=== PATIENT | male | born 1965 | race Hispanic/Latino ===

== ENCOUNTER 2018-07-28 21:04 | Emergency (ER) | payer OTHER ==
[2018-07-28 21:09] VITALS: RESP 18; TEMP 97.9
--- NOTE | 2018-07-28 21:34 | C.PDOC ---
History Of Present Illness 53 year old male is brought to the ED by EMS for evaluation after patient was found publicly intoxicated [employer]. Patient states he was discharged from [facility] this morning. Patient with no previous visits to this ED. He offers no physical complaints at this time. Time Seen by Provider: 07/28/18 21:14 Chief Complaint (Nursing): Altered Mental Status History Per: Patient History/Exam Limitations: Intoxication Past Medical History Reviewed: Historical Data, Nursing Documentation, Vital Signs Vital Signs: Last Vital Signs Temp 97.9 F 07/28/18 21:06 Pulse 94 H 07/28/18 21:06 Resp 18 07/28/18 21:06 BP 123/69 07/28/18 21:06 Pulse Ox 98 07/28/18 21:06 - Medical History PMH: Depression, Seizures Denies: Chronic Kidney Disease Surgical History: No Surg Hx Family History: States: Unknown Family Hx - Social History Hx Alcohol Use: No (PER PT HE QUIT DRINKING) Hx Substance Use: No - Immunization History Hx Tetanus Toxoid Vaccination: No Hx Influenza Vaccination: Yes Hx Pneumococcal Vaccination: No Review Of Systems Psych: Positive for: Other (alcohol intoxication ) Physical Exam - Physical Exam Appears: Non-toxic, No Acute Distress, Other (disheveled, foul-smelling ) Skin: Normal Color, Warm, Dry Head: Atraumatic, Normacephalic Eye(s): bilateral: Other (pinpoint pupils) Oral Mucosa: Moist Neck: Supple Chest: Symmetrical, No Deformity Respiratory: No Accessory Muscle Use Extremity: Normal ROM Neurological/Psych: Other (argumentative, confrontational ) ED Course And Treatment O2 Sat by Pulse Oximetry: 98 (on RA ) Pulse Ox Interpretation: Normal Medical Decision Making Medical Decision Making: subtance abuse d/c from [facility] today for seizures, ? w/d seizures pt denies h/o seizures pinpoint pupils suggest narcotics abuse pt demanding d/c to street immediatly NAD Disposition Doctor Will See Patient In The: Office Counseled Patient/Family Regarding: Studies Performed, Diagnosis - Disposition Referrals: Alcoholics Anonymous [Outside] [facility] [Outside] [facility] [Outside] [facility] [Outside] [facility] [Outside] Disposition: HOME/ ROUTINE Disposition Time: 21:34 Condition: GOOD Additional Instructions: seek outpatient resources for substance abuse issues Prescriptions: Naloxone HCl [Narcan] 4 mg NS ONCE PRN #1 spray PRN Reason: overdose Instructions: Drug Abuse and Drug Addiction (DC), Alcohol Abuse and Alcoholism (DC) Forms: [employer] ([employer]) - Clinical Impression Clinical Impression: Substance abuse - Scribe Statement The provider has reviewed the documentation as recorded by the Scribe (Domi Trejo) Provider Attestation: All medical record entries made by the Scribe were at my direction and personally dictated by me. I have reviewed the chart and agree that the record accurately reflects my personal performance of the history, physical exam, medical decision making, and the department course for this patient. I have also personally directed, reviewed, and agree with the discharge instructions and disposition.
[2018-07-28 22:21] VITALS: BP 137/78; PULSE 74
[2018-07-29 00:06] VITALS: O2SAT 98
== END 2018-07-28 21:30 | disposition home or self-care (01) ==
LOC: C.ER 21:04
DX: F19.10 Other psychoactive substance abuse, uncomplicated (principal)